=== PATIENT | female | born 1975 | race Caucasian/White ===

== ENCOUNTER 2017-01-21 19:29 | Emergency (ER) | payer OTHER ==
[2017-01-21] MEDS ORDERED: Acetaminophen TAB* 325 MG PO ONE (20:24)
--- NOTE | 2017-01-21 20:28 | RAD ---
Indication: LEFT knee pain following injury walking upstairs; heard a pop. Previous patellar subluxation. Comparison: No relevant prior exams available on the [facility] PACS for comparison. Technique: AP, tunnel, crosstable lateral, sunrise views LEFT knee. Report: Obese body habitus limits image quality. Lateral subluxation of the patella relative to the femoral trochlea. Moderately large suprapatellar joint effusion without conspicuous fat fluid level. Mild contour irregularity at the medial subchondral region of the patella which may reflect an osteochondral impaction fracture from transient lateral dislocation. Unremarkable soft tissue contours accounting for body habitus. IMPRESSION: 1. Lateral subluxation of the patella. 2. Age-indeterminate probable osteochondral impaction fracture at the peripheral medial facet of the patella typically seen in setting of prior lateral dislocation of the patellofemoral joint. 3. Moderately large joint effusion without gross fat fluid level.
[2017-01-21 21:27] LABS: Hematocrit 38 % (35-47); Hemoglobin 12.4 g/dl (12.0-16.0); Mean Corpuscular HGB Conc 33 g/dl (31-36); Mean Corpuscular Hemoglobin 26 pg (27-31); Mean Corpuscular Volume 79 fL (80-97); Mean Platelet Volume 7 um3 (7.4-10.4); Red Blood Count 4.79 10^6/ul (4.0-5.4); Red Cell Distribution Width 15 % (10.5-15); White Blood Count 14.5 10^3/ul (3.5-10.8)
[2017-01-21 21:35] LABS: Calcium 9.7 mg/dL (8.6-10.3); EGFR African American 132.6 (>60); EGFR Non-African American 103.1 (>60); Globulin 3.2 g/dL (2-4); Potassium 3.4 mmol/L (3.5-5.0); Total Bilirubin 0.4 mg/dL (0.2-1.0); Total Protein 7.2 g/dL (6.4-8.9)
[2017-01-21 21:37] LABS: Urine Bacteria 2+ (Absent); Urine Bilirubin Negative (Negative); Urine Glucose 1+(50 mg/dL) (Negative); Urine Nitrite Negative (Negative)
[2017-01-21 21:52] VITALS: BP 233/138
[2017-01-21] MEDS ORDERED: Levofloxacin TAB* 500 MG PO ONE (22:08)
[2017-01-21] MEDS ORDERED: Hydrochlorothiazide TAB* 25 MG PO ONE (22:09)
--- NOTE | 2017-01-21 22:12 | ED ---
Lower Extremity - HPI Summary HPI Summary: 41F presents with left knee pain today. She stated that she was walking up stairs when she heard a pop in her left knee. She has had problems with patella dislocation in the past. She was able to straighten her knee. She is able to ambulate with pain. She states it feels stiff but initially it felt warm. She denies any numbness or tingling. She took ibuprofen for pain. She has not been to a doctor for a while so has not diagnosed medical problems. She denies any chest pain, SOB, or headache. She denies any dysuria, flank pain, or abdominal pain. - History of Current Complaint Chief Complaint: EDExtremityLower Stated Complaint: LT KNEE PAIN Time Seen by Provider: 01/21/17 19:41 Pain Intensity: 6 - Allergies/Home Medications Allergies/Adverse Reactions: Allergies Allergy/AdvReac Type Severity Reaction Status Date / Time Amoxicillin Allergy Unknown Verified 01/21/17 19:39 Reaction Details PMH/Surg Hx/FS Hx/Imm Hx Endocrine/Hematology History: Denies: Hx Anticoagulant Therapy, Hx Diabetes Cardiovascular History: Denies: Hx Myocardial Infarction Infectious Disease History: No Infectious Disease History: Denies: Traveled Outside the [place] in Last 30 Days - Family History Known Family History: Positive: Hypertension - Social History Alcohol Use: Rare Substance Use Type: Reports: None Smoking Status (MU): Never Smoked Tobacco Review of Systems Negative: Fever Negative: Chest Pain Negative: Shortness Of Breath Positive: Myalgia - left knee pain All Other Systems Reviewed And Are Negative: Yes Physical Exam Triage Information Reviewed: Yes Vital Signs On Initial Exam: Initial Vitals Temp Pulse Resp BP Pulse Ox 98.2 F 88 20 258/124 97 01/21/17 19:36 01/21/17 19:36 01/21/17 19:36 01/21/17 19:36 01/21/17 19:36 Vital Signs Reviewed: Yes Appearance: Positive: Well-Appearing Skin: Positive: Warm, Dry Head/Face: Positive: Normal Head/Face Inspection Eyes: Positive: Normal, Conjunctiva Clear Respiratory/Lung Sounds: Positive: Clear to Auscultation, Breath Sounds Present Cardiovascular: Positive: Normal, RRR Abdomen Description: Positive: Nontender, Soft. Negative: CVA Tenderness (R), CVA Tenderness (L) Bowel Sounds: Positive: Present Musculoskeletal: Positive: Strength/ROM Intact - left knee with pain, Other - patella feels midline, neg anterior drawer, edema to left knee, good pulses, sensation grossly intact Neurological: Positive: Normal - [place] Coma Scale Coma Scale Total: 15 Diagnostics - Vital Signs Vital Signs Temp Pulse Resp BP Pulse Ox 01/21/17 21:51 98 18 233/138 97 01/21/17 19:36 98.2 F 88 20 258/124 97 - Laboratory Lab Results: Lab Results 01/21/17 01/21/17 01/21/17 Range/Units 21:00 21:00 21:16 WBC 14.5 H (3.5-10.8) 10^3/ul RBC 4.79 (4.0-5.4) 10^6/ul Hgb 12.4 (12.0-16.0) g/dl Hct 38 (35-47) % MCV 79 L (80-97) fL MCH 26 L (27-31) pg MCHC 33 (31-36) g/dl RDW 15 (10.5-15) % Plt Count 398 (150-450) 10^3/ul MPV 7 L (7.4-10.4) um3 Neut % (Auto) 84.7 H (38-83) % Lymph % (Auto) 12.5 L (25-47) % Shannon % (Auto) 2.1 (1-9) % Eos % (Auto) 0.2 (0-6) % Baso % (Auto) 0.5 (0-2) % Absolute Neuts (auto) 12.3 H (1.5-7.7) 10^3/ul Absolute Lymphs (auto) 1.8 (1.0-4.8) 10^3/ul Absolute Monos (auto) 0.3 (0-0.8) 10^3/ul Absolute Eos (auto) 0 (0-0.6) 10^3/ul Absolute Basos (auto) 0.1 (0-0.2) 10^3/ul Absolute Nucleated RBC 0 10^3/ul Nucleated RBC % 0 Sodium 133 (133-145) mmol/L Potassium 3.4 L (3.5-5.0) mmol/L Chloride 101 (101-111) mmol/L Carbon Dioxide 23 (22-32) mmol/L Anion Gap 9 (2-11) mmol/L BUN 12 (6-24) mg/dL Creatinine 0.63 (0.51-0.95) mg/dL Est GFR ( Amer) 132.6 (>60) Est GFR (Non-Af Amer) 103.1 (>60) BUN/Creatinine Ratio 19.0 (8-20) Glucose 152 H (70-100) mg/dL Calcium 9.7 (8.6-10.3) mg/dL Total Bilirubin 0.40 (0.2-1.0) mg/dL AST 12 L (13-39) U/L ALT 11 (7-52) U/L Alkaline Phosphatase 71 (34-104) U/L Total Protein 7.2 (6.4-8.9) g/dL Albumin 4.0 (3.2-5.2) g/dL Globulin 3.2 (2-4) g/dL Albumin/Globulin Ratio 1.3 (1-3) Urine Color Straw Urine Appearance Cloudy Urine pH 6.0 (5-9) Ur Specific [place] 1.009 L (1.010-1.030) Urine Protein 1+(30 mg/dl) H (Negative) Urine Ketones Trace H (Negative) Urine Blood 1+ H (Negative) Urine Nitrate Negative (Negative) Urine Bilirubin Negative (Negative) Urine Urobilinogen Negative (Negative) Ur Leukocyte Esterase Trace H (Negative) Urine WBC (Auto) Trace(0-5/hpf) (Absent) Urine RBC (Auto) Trace(0-2/hpf) (Absent) Ur Squamous Epith Cells Present H (Absent) Urine Bacteria 2+ H (Absent) Urine Glucose 1+(50 mg/dl) H (Negative) Result Diagrams: 01/21/17 21:00 01/21/17 21:00 Lab Statement: Any lab studies that have been ordered have been reviewed, and results considered in the medical decision making process. - Radiology knee Xray Interpretation: Positive (See Comments) - IMPRESSION: 1. Lateral subluxation of the patella. 2. Age-indeterminate probable osteochondral impaction fracture at the peripheral medial facet of the patella typically seen in setting of prior lateral dislocation of the patellofemoral joint. 3. Moderately large joint effusion without gross fat fluid level. Radiology Interpretation Completed By: Radiologist - EKG No standard instances Cardiac Rate: NL EKG Rhythm: Sinus Tachycardia ST Segment: Normal EKG Interpretation: sinus tachycardia no LVH Lower Extremity Course/Dx - Course Course Of Treatment: 41F presents with left knee pain today. She stated that she was walking up stairs when she heard a pop in her left knee. She has had problems with patella dislocation in the past. She was able to straighten her knee. She is able to ambulate with pain. She states it feels stiff but initially it felt warm. She denies any numbness or tingling. She took ibuprofen for pain. She has not been to a doctor for a while so has not diagnosed medical problems. She denies any chest pain, SOB, or headache. She denies any dysuria, flank pain, or abdominal pain. on exam edema to left knee, neurovascular intact. blood pressure 233/[address] bustos. due to blood pressure need to do basic work up as having no symptoms. has wbc count but patient states has cold with sinus congestion. no uti symptoms. will treat for uti with levaquin as will also cover for pneumonia as has cough also. will start on hydrochlorothiazide for blood pressure but needs primary for continued care. will have follow up with ortho due to subluxation of left patella on xray. patient understands and agrees with plan. - Diagnoses Differential Diagnosis/HQI/PQRI: Positive: Fracture (Closed), Sprain, Strain Provider Diagnoses: Left knee pain, Hypertension, UTI (urinary tract infection) Discharge - Discharge Plan Condition: Good Disposition: HOME Prescriptions: Hydrochlorothiazide TAB* [Hydrodiuril TAB*] 25 mg PO DAILY #20 tab Levofloxacin TAB* [Levaquin TAB*] 500 mg PO DAILY #4 tab Patient Education Materials: Urinary Tract Infection in Women (ED), Hypertension (ED), Patellar Dislocation (ED) Referrals: [facility] [Outside] Rajni Looney MD [Medical Doctor] - Additional Instructions: Take antibiotic once a day for 4 more days Take blood pressure medication once a day Follow the DASH diet Keep immobilize on knee Take Tylenol or ibuprofen every 6 hours as needed for pain Apply ice, rest, elevate Establish care with primary about blood pressure Follow up with ortho Return to ED if develop any new or worsening symptoms
== END 2017-01-21 22:14 | disposition home or self-care (01) ==
LOC: ED 19:29
DX: M25.562 Pain in left knee (principal); I10 Essential (primary) hypertension; N39.0 Urinary tract infection, site not specified
CPT/HCPCS: 36415; 80053; 81003; 81015; 85025; 87086; 93005; 99282; A9270-GY

== ENCOUNTER 2017-02-11 12:47 | Emergency (ER) | payer OTHER ==
[2017-02-11 14:14] VITALS: BP 163/116
--- NOTE | 2017-02-11 15:13 | UC ---
UC General HPI - HPI Summary HPI Summary: Patient recently DX with HTN, needs refill of meds to make it to her PCP appointment on 02/27/17. - History of Current Complaint Chief Complaint: UCMedRefill Stated Complaint: MED REFILL Time Seen by Provider: 02/11/17 14:58 Hx Obtained From: Patient Hx Last Menstrual Period: 02/11/17 Onset/Duration: Sudden Onset Timing: Constant Onset Severity: Mild Current Severity: None - Allergy/Home Medications Allergies/Adverse Reactions: Allergies Allergy/AdvReac Type Severity Reaction Status Date / Time Amoxicillin Allergy Unknown Verified 01/21/17 19:39 Reaction Details Home Medications: Home Medications Naproxen [Naproxen 500 mg] 500 mg PO BID 02/11/17 [History Confirmed 02/11/17] PMH/Surg Hx/FS Hx/Imm Hx Previously Healthy: Yes Other History Of: Negative For: Anticoagulant Therapy - Surgical History Surgical History: Yes Surgery Procedure, Year, and Place: right ovarian cyst - Family History Known Family History: Positive: Hypertension - Social History Alcohol Use: Rare Substance Use Type: None Smoking Status (MU): Never Smoked Tobacco - Immunization History Most Recent Influenza Vaccination: none Review of Systems Constitutional: Negative Skin: Negative Eyes: Negative ENT: Negative Respiratory: Negative Cardiovascular: Negative Gastrointestinal: Negative Genitourinary: Negative Motor: Negative Neurovascular: Negative Musculoskeletal: Negative Neurological: Negative Psychological: Negative Is Patient Immunocompromised?: No All Other Systems Reviewed And Are Negative: Yes Physical Exam Triage Information Reviewed: Yes Appearance: Well-Appearing, No Pain Distress, Well-Nourished Vital Signs: Initial Vital Signs Temp 97.4 F 02/11/17 14:05 Pulse 83 02/11/17 14:05 Resp 18 02/11/17 14:05 BP 163/116 02/11/17 14:05 Pulse Ox 100 02/11/17 14:05 Vital Signs Reviewed: Yes Eye Exam: Normal ENT Exam: Normal ENT: Positive: Normal ENT inspection, Hearing grossly normal Dental Exam: Normal Neck exam: Normal Respiratory Exam: Normal Cardiovascular Exam: Normal Abdominal Exam: Normal Bowel Sounds: Positive: Present Musculoskeletal Exam: Normal Neurological Exam: Normal Psychological Exam: Normal Skin Exam: Normal Course/Dx - Course Course Of Treatment: hx obtained, exam performed ,meds reviewed and refilled, educated on s/s of hypertensive crisis and stroke to report to ER immediately. - Differential Dx - Multi-Symptom Provider Diagnoses: Hypertnesion. med refill Discharge - Discharge Plan Condition: Stable Disposition: HOME Prescriptions: Hydrochlorothiazide TAB* [Hydrodiuril TAB*] 25 mg PO DAILY #20 tab Patient Education Materials: Hypertension (ED) Referrals: No Primary Care Phys,NOPCP [Primary Care Provider] - Additional Instructions: 1. take the medication as prescribed. 2. Follow up with your PCP
== END 2017-02-11 15:35 | disposition home or self-care (01) ==
LOC: UCCORT 12:47
DX: I10 Essential (primary) hypertension (principal); Z76.0 Encounter for issue of repeat prescription; Z88.1 Allergy status to other antibiotic agents
CPT/HCPCS: 99212; G0463